=== PATIENT | female | born 1985 | race African-American/Black ===

== ENCOUNTER 2018-07-20 10:47 | Emergency (ER) | payer SELFPAY ==
--- NOTE | 2018-07-20 11:30 | ER Document Report ---
ED Medical Screen (RME) - General Chief Complaint: Flank Pain Stated Complaint: LEG PAIN Time Seen by Provider: 07/20/18 11:28 Notes: 32 years old female who is presents today with left lower quadrant pain radiating the groin. As well as to the leg. Since this morning. She had a bowel movement 2 days ago. Denies any dysuria frequency urgency. Denies any vaginal discharge. Denies any fever chills or other constitutional symptoms. She had a ultrasound done by health clinic last week Wednesday. It showed intrauterine productive concept. Too early to define anything else. Mild to moderate tenderness over the left lower quadrant noted. Left flank tenderness to. TRAVEL OUTSIDE OF THE [place] IN LAST 30 DAYS: No - Related Data Allergies/Adverse Reactions: No Known Allergies Allergy (Unverified 07/20/18 10:52) Past Medical History - Immunizations Hx Diphtheria, Pertussis, Tetanus Vaccination: Yes Physical Exam - Vital signs Vitals: Temp Pulse Resp BP Pulse Ox 98.8 F 98 16 125/84 99 07/20/18 10:56 07/20/18 10:56 07/20/18 10:56 07/20/18 10:56 07/20/18 10:56 Course - Vital Signs Vital signs: Temp Pulse Resp BP Pulse Ox 98.8 F 98 16 125/84 99 07/20/18 10:56 07/20/18 10:56 07/20/18 10:56 07/20/18 10:56 07/20/18 10:56
[2018-07-20 11:53] LABS: ABSOLUTE EOSINOPHILS # (AUTO) 0.2 10^3/uL (0.0-0.6); ABSOLUTE MONOCYTES (AUTO) 0.8 10^3/uL (0.1-1.4); HEMOGLOBIN 13.4 g/dL (12.0-15.5); TOTAL CELLS COUNTED % (AUTO) 100 %
[2018-07-20 11:57] LABS: APPEARANCE,URINE CLEAR; BILIRUBIN,URINE NEGATIVE (NEGATIVE); COLOR,URINE STRAW; GLUCOSE, URINE NEGATIVE (NEGATIVE); KETONES,URINE NEGATIVE (NEGATIVE); LEUKOCYTE ESTERASE,URINE NEGATIVE (NEGATIVE); NITRITE,URINE NEGATIVE (NEGATIVE); PROTEIN,URINE NEGATIVE (NEGATIVE); URINE SPECIFIC GRAVITY 1.005; UROBILINOGEN,URINE NEGATIVE mg/dL (<2.0)
[2018-07-20 12:09] LABS: ABSOLUTE LYMPHOCYTES (AUTO) 3.1 10^3/uL (0.5-4.7)
[2018-07-20 12:13] LABS: ABSOLUTE BASOPHILS # (AUTO) 0.1 10^3/uL (0.0-0.2); BASOPHILS % (AUTO) 0.6 % (0-2); EOSINOPHILS % (AUTO) 2.4 % (0-6); HEMATOCRIT 39.4 % (36.0-47.0); LYMPHOCYTES % (AUTO) 30.4 % (13-45); MEAN CORPUSCULAR HEMOGLOBIN 28.9 pg (27.0-33.4); MEAN CORPUSCULAR HGB CONC 34.1 g/dL (32.0-36.0); MEAN CORPUSCULAR VOLUME 85 fl (80-97); MONOCYTES % (AUTO) 7.7 % (3-13); PLATELET COUNT 191 10^3/uL (150-450); RED BLOOD COUNT 4.65 10^6/uL (3.72-5.28); RED CELL DISTRIBUTION WIDTH 14.3 % (11.5-14.0); SEGMENTED NEUTROPHILS % (AUTO) 58.9 % (42-78); WHITE BLOOD COUNT 10.2 10^3/uL (4.0-10.5)
[2018-07-20 12:37] LABS: ALANINE AMINOTRANSFERASE 16 U/L (9-52); ALBUMIN 4.6 g/dL (3.5-5.0); ALKALINE PHOSPHATASE 40 U/L (38-126); ANION GAP 9 (5-19); ASPARTATE AMINO TRANSFERASE 19 U/L (14-36); BILIRUBIN,DIRECT 0.1 mg/dL (0.0-0.4); BILIRUBIN,TOTAL 0.4 mg/dL (0.2-1.3); BLOOD UREA NITROGEN 8 mg/dL (7-20); CALCIUM 9.9 mg/dL (8.4-10.2); CARBON DIOXIDE 26 mmol/L (22-30); CHLORIDE 102 mmol/L (98-107); GLUCOSE 101 mg/dL (75-110); SODIUM 137.4 mmol/L (137-145); TOTAL PROTEIN 7.3 g/dL (6.3-8.2)
--- NOTE | 2018-07-20 14:44 | ER Document Report ---
ED General - General Chief Complaint: Flank Pain Stated Complaint: LEG PAIN Time Seen by Provider: 07/20/18 11:28 Mode of Arrival: Ambulatory Information source: Patient Notes: 32-year-old female 3 para 1, history of miscarriage. Presents with left lower abdominal pain in the setting of early . Patient denies any vaginal bleeding. TRAVEL OUTSIDE OF THE [place] IN LAST 30 DAYS: No - HPI Onset: Just prior to arrival Onset/Duration: Gradual Quality of pain: Cramping, Dull Severity: Mild Pain Level: 1 Associated symptoms: denies: Chest pain, Nausea, Vomiting, Shortness of breath Exacerbated by: Denies Relieved by: Denies Similar symptoms previously: No Recently seen / treated by doctor: No - Related Data Allergies/Adverse Reactions: No Known Allergies Allergy (Unverified 07/20/18 10:52) Past Medical History - General Information source: Patient - Social History Smoking Status: Current Every Day Smoker Cigarette use (# per day): Yes - Half pack per day Chew tobacco use (# tins/day): No Frequency of alcohol use: None Drug Abuse: None Lives with: Family Family History: Hypertension Patient has suicidal ideation: No Patient has homicidal ideation: No - Medical History Medical History: Negative Renal/ Medical History: Denies: Hx Peritoneal Dialysis Surgical Hx: Negative - Immunizations Hx Diphtheria, Pertussis, Tetanus Vaccination: Yes Review of Systems - Review of Systems Constitutional: denies: Chills, Fever EENT: No symptoms reported Cardiovascular: No symptoms reported Respiratory: No symptoms reported Gastrointestinal: See HPI Genitourinary: No symptoms reported. denies: Dysuria, Flank pain Female Genitourinary: No symptoms reported Musculoskeletal: No symptoms reported Skin: No symptoms reported Hematologic/Lymphatic: No symptoms reported Neurological/Psychological: No symptoms reported Physical Exam - Vital signs Vitals: Temp Pulse Resp BP Pulse Ox 98.8 F 98 16 125/84 99 07/20/18 10:56 07/20/18 10:56 07/20/18 10:56 07/20/18 10:56 07/20/18 10:56 Notes: Physical exam: GENERAL: Patient is alert and oriented x3, no acute distress HEAD: Atraumatic, normocephalic. EYES: Pupils equal round and reactive to light, extraocular movements intact, sclera anicteric, conjunctiva are normal. ENT: TMs normal, nares patent, oropharynx clear without exudates. Moist mucous membranes. NECK: Normal range of motion, supple without obvious mass or JVD. LUNGS: Breath sounds clear to auscultation bilaterally and equal. No wheezes rales or rhonchi. HEART: Regular rate and rhythm without murmurs, rubs or gallops. ABDOMEN: Soft, normoactive bowel sounds. No tenderness to palpation. No guarding, no rebound. No masses appreciated. EXTREMITIES: Normal range of motion, no pitting or edema. No clubbing or cyanosis. NEUROLOGICAL: Cranial nerves II through XII grossly intact. Normal speech, moving all extremities. PSYCH: Normal mood, normal affect. SKIN: Warm, Dry, normal turgor, no rashes or lesions noted. Bedside ultrasound: No hydronephrosis Course - Vital Signs Vital signs: Temp Pulse Resp BP Pulse Ox 98.5 F 88 14 112/75 100 07/20/18 14:49 07/20/18 14:49 07/20/18 14:49 07/20/18 14:49 07/20/18 14:49 - Laboratory Result Diagrams: 07/20/18 11:40 07/20/18 11:40 Laboratory results interpreted by me: 07/20/18 07/20/18 11:40 11:40 RDW 14.3 H Beta HCG, Quant 95147.00 H - Diagnostic Test Radiology reviewed: Image reviewed, Reports reviewed - Normal ultrasound shows a viable intrauterine at 6 weeks, 1 day gestation Discharge - Discharge Clinical Impression: Early Condition: Stable Disposition: HOME, SELF-CARE Additional Instructions: The preliminary results of the ultrasound show that the is in the right spot in the there is a heart beat. These are good signs thus far. The is approximately 6 weeks and a few days gestation. The formal report as we discussed is not back yet. Return to the emergency room for worsening pain, any vaginal bleeding or any concerns that your discomfort is getting worse. Follow-up at the health department as planned. Referrals: MARIELA GALICIA MD [Primary Care Provider] - Follow up as needed
--- NOTE | 2018-07-20 14:45 | RADIOLOGY REPORT (SQ) ---
EXAM DESCRIPTION: U/S [id number] TRNABD 1GES W/ODOP COMPLETED DATE/TIME: 07/20/2018 2:28 pm REASON FOR STUDY: left flank pain, COMPARISON: None. TECHNIQUE: Transabdominal static and realtime grayscale images acquired of the pelvis. Additional se lected spectral and color Doppler images recorded. All images stored on PACs. bHCG: Not available. CLINICAL DATES: LMP 05/23/2018. 8 weeks 2 days. LIMITATIONS: None. FINDINGS: FETUS: Single Living intrauterine . ULTRASOUND EGA: 6 weeks 1 day ULTRASOUND BETTY: In 03/14/2019 EFW: Not applicable less than 20 weeks. CRL: 4 mm. FHR: 123 beats per minute. SURVEY: Too early to assess. AMNIOTIC FLUID: Adequate amount. PLACENTA: Not yet developed due to early gestation. SUBCHORIONIC BLEED: No SIZE OF BLEED: Not applicable. UTERUS: No masses. No anomalies. 12.3 x 6.9 x 6.3 cm. CERVICAL LENGTH: 2.3 cm. Closed. RIGHT ADNEXA: Normal ovary with normal vascular flow. 2.4 x 2.7 x 1.8 cm. No adnexal free fluid. No adnexal masses. LEFT ADNEXA: Normal ovary with normal vascular flow. 2.6 x 2.6 x 1.6 cm. No adnexal free fluid. No adnexal masses. FREE FLUID: None. OTHER: No other significant finding. IMPRESSION: LIVING INTRAUTERINE . EGA 6 weeks 1 day. Trimester of : First - 0 to 13 weeks. TECHNICAL DOCUMENTATION: JOB ID: [id number] [employer]- All Rights Reserved rev Reading location - IP/workstation name: [email or web address]
[2018-07-20 14:52] VITALS: BP 112/75
== END 2018-07-20 14:49 | disposition home or self-care (01) ==
LOC: ER 10:47
DX: O26.891 Other specified pregnancy related conditions, first trimester (principal); O99.331 Smoking (tobacco) complicating pregnancy, first trimester; R10.32 Left lower quadrant pain; Z3A.01 Less than 8 weeks gestation of pregnancy
CPT/HCPCS: 36415; 76801; 80053; 81001; 84702; 85025; 99284

== ENCOUNTER 2018-08-20 02:34 | Emergency (ER) | payer SELFPAY ==
--- NOTE | 2018-08-20 02:51 | ER Document Report ---
ED GI/ - General Chief Complaint: Vaginal Bleeding Stated Complaint: VAGINAL BLEEDING Time Seen by Provider: 08/20/18 02:38 Mode of Arrival: Ambulatory Information source: Patient Notes: Patient presents stating that she is attending 1/2 weeks . Patient states that she started to have pelvic cramping with vaginal bleeding that started around 1 AM. Patient states that bleeding has been light. Patient denies any concerns about any sexually transmitted infection. Patient does report occasional pressure with voiding but denies any dysuria. TRAVEL OUTSIDE OF THE [place] IN LAST 30 DAYS: No - HPI Patient complains to provider of: Pelvic pain, , Vaginal bleeding. 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 period history: Sexual history: Active Associated symptoms: denies: Dysuria, Fever, Nausea, Urinary hesitancy, Urinary frequency, Vomiting Exacerbated by: Denies Relieved by: Denies Similar symptoms previously: No Recently seen / treated by doctor: No - Related Data Allergies/Adverse Reactions: No Known Allergies Allergy (Verified 08/20/18 02:53) Past Medical History - General Information source: Patient - Social History Smoking Status: Never Smoker Frequency of alcohol use: None Drug Abuse: None 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 denies: Fever, Recent illness EENT: No symptoms reported Cardiovascular: No symptoms reported. denies: Dizziness Respiratory: No symptoms reported. denies: Cough, Short of breath Gastrointestinal: Abdominal pain. denies: Diarrhea, Nausea, Vomiting Genitourinary: Other - Occasional pressure with voiding. denies: Burning Female Genitourinary: , Vaginal bleeding. denies: Vaginal discharge Musculoskeletal: No symptoms reported. denies: Back pain Skin: No symptoms reported Hematologic/Lymphatic: No symptoms reported Neurological/Psychological: No symptoms reported Physical Exam - Vital signs Vitals: Temp Pulse Resp BP Pulse Ox 98.8 F 89 16 113/77 99 08/20/18 02:34 08/20/18 02:34 08/20/18 02:34 08/20/18 02:34 08/20/18 02:34 - General General appearance: Appears well, Alert In distress: None - HEENT Head: Normocephalic, Atraumatic Eyes: Normal Conjunctiva: Normal Nasal: Normal Neck: Normal, Supple. No: Lymphadenopathy - Respiratory Respiratory status: No respiratory distress Chest status: Nontender Breath sounds: Normal. No: Rales, Rhonchi, Stridor, Wheezing Chest palpation: Normal - Cardiovascular Rhythm: Regular Heart sounds: S1 appreciated, S2 appreciated Murmur: No - Abdominal Inspection: Normal Distension: No distension Bowel sounds: Normal Tenderness: Tender - lower pelvic - Back Back: Normal, Nontender. No: CVA tenderness - Extremities General upper extremity: Normal inspection, Nontender, Normal strength General lower extremity: Normal inspection, Nontender, Normal strength - Neurological Neuro grossly intact: Yes Cognition: Normal Kristi Coma Scale Eye Opening: Spontaneous [place] Coma Scale Verbal: Oriented Kristi Coma Scale Motor: Obeys Commands [place] Coma Scale Total: 15 - Psychological Associated symptoms: Normal affect, Normal mood - Skin Skin Temperature: Warm Skin Moisture: Dry Skin Color: Normal Course - Re-evaluation Re-evalutation: 08/20/18 05:02 Patient hemodynamically stable with stable vital signs at this time. Patient denies needing any medication for her lower pelvic cramping at this time. Patient with what appears to be a subchorionic bleed noted on ultrasound. Patient does have a small amount of hematuria on a UA but suspect that this is a likely contaminant from the vaginal bleeding at this time. Good return precautions given to patient and patient encouraged to follow-up with an INSTRUCTIONAL TECHNOLOGY COACH provider to establish care at this time. - Vital Signs Vital signs: Temp Pulse Resp BP Pulse Ox 98.8 F 89 16 113/77 99 08/20/18 02:34 08/20/18 02:34 08/20/18 02:34 08/20/18 02:34 08/20/18 02:34 - Laboratory Result Diagrams: 08/20/18 02:50 Laboratory results interpreted by me: 08/20/18 08/20/18 08/20/18 02:50 02:50 03:15 WBC 11.1 H Beta HCG, Quant 30411.00 H Urine Blood MODERATE H Labs- Entire Visit 1108/20/18 08/20/18 02:50 02:50 02:50 WBC 11.1 H RBC 4.65 Hgb 13.4 Hct 40.1 MCV 86 MCH 28.9 MCHC 33.5 RDW 13.9 Plt Count 198 Seg Neutrophils % 67.4 Lymphocytes % 23.3 Monocytes % 7.0 Eosinophils % 1.9 Basophils % 0.4 Absolute Neutrophils 7.5 Absolute Lymphocytes 2.6 Absolute Monocytes 0.8 Absolute Eosinophils 0.2 Absolute Basophils 0.0 Beta HCG, Quant 13901.00 H Total Beta HCG POSITIVE Urine Color Urine Appearance Urine pH Ur Specific [place] Urine Protein Urine Glucose (UA) Urine Ketones Urine Blood Urine Nitrite Urine Bilirubin Urine Urobilinogen Ur Leukocyte Esterase Urine WBC (Auto) Urine RBC (Auto) Squamous Epi Cells Auto Urine Mucus (Auto) Urine Ascorbic Acid Blood Type AB POSITIVE Rhogam Indicated RHOGAM NOT INDICATED 08/20/18 03:15 WBC RBC Hgb Hct MCV MCH MCHC RDW Plt Count Seg Neutrophils % Lymphocytes % Monocytes % Eosinophils % Basophils % Absolute Neutrophils Absolute Lymphocytes Absolute Monocytes Absolute Eosinophils Absolute Basophils Beta HCG, Quant Total Beta HCG Urine Color YELLOW Urine Appearance SLIGHTLY-CLOUDY Urine pH 5.0 Ur Specific [place] 1.027 Urine Protein NEGATIVE Urine Glucose (UA) NEGATIVE Urine Ketones NEGATIVE Urine Blood MODERATE H Urine Nitrite NEGATIVE Urine Bilirubin NEGATIVE Urine Urobilinogen NEGATIVE Ur Leukocyte Esterase NEGATIVE Urine WBC (Auto) 2 Urine RBC (Auto) 2 Squamous Epi Cells Auto <1 Urine Mucus (Auto) MANY Urine Ascorbic Acid NEGATIVE Blood Type Rhogam Indicated - Diagnostic Test Radiology reviewed: Reports reviewed Discharge - Discharge Clinical Impression: Intrauterine Subchorionic bleed Qualifiers: Fetus number: single or unspecified fetus Trimester: first trimester Qualified Code(s): O41.8X10 - Other specified disorders of amniotic fluid and membranes, first trimester, not applicable or unspecified Condition: Stable Disposition: HOME, SELF-CARE Instructions: Vaginal Bleeding ([facility]) Additional Instructions: Return immediately for any new or worsening symptoms Followup with your primary care provider, call tomorrow to make a followup appointment Follow-up with an INSTRUCTIONAL TECHNOLOGY COACH for further evaluation, call Wednesday for an appointment. Pelvic rest until symptoms have resolved Forms: Return to Work Referrals: MARIELA GALICIA MD [EMERITUS] - [facility] - Follow up as needed [facility] [Provider Group] - 08/22/18
[2018-08-20 03:04] LABS: ABSOLUTE EOSINOPHILS # (AUTO) 0.2 10^3/uL (0.0-0.6); ABSOLUTE LYMPHOCYTES (AUTO) 2.6 10^3/uL (0.5-4.7); ABSOLUTE MONOCYTES (AUTO) 0.8 10^3/uL (0.1-1.4); ABSOLUTE NEUT (AUTO) 7.5 10^3/uL (1.7-8.2); BASOPHILS % (AUTO) 0.4 % (0-2); EOSINOPHILS % (AUTO) 1.9 % (0-6); HEMATOCRIT 40.1 % (36.0-47.0); HEMOGLOBIN 13.4 g/dL (12.0-15.5); LYMPHOCYTES % (AUTO) 23.3 % (13-45); MEAN CORPUSCULAR HEMOGLOBIN 28.9 pg (27.0-33.4); MEAN CORPUSCULAR HGB CONC 33.5 g/dL (32.0-36.0); MEAN CORPUSCULAR VOLUME 86 fl (80-97); PLATELET COUNT 198 10^3/uL (150-450); RED BLOOD COUNT 4.65 10^6/uL (3.72-5.28); RED CELL DISTRIBUTION WIDTH 13.9 % (11.5-14.0); SEGMENTED NEUTROPHILS % (AUTO) 67.4 % (42-78); TOTAL CELLS COUNTED % (AUTO) 100 %; WHITE BLOOD COUNT 11.1 10^3/uL (4.0-10.5)
--- NOTE | 2018-08-20 04:01 | RADIOLOGY REPORT (SQ) ---
EXAM DESCRIPTION: US LIMITED COMPLETED DATE/TME: 08/20/2018 02:46 CLINICAL HISTORY: 32 years, Female, vag bleeding, pelvic cramping COMPARISON: 07/20/2018 ultrasound TECHNIQUE: Transverse and longitudinal sonographic images were obtained in a first trimester patient. LIMITATIONS: None. FINDINGS: There is a single, live intrauterine gestation. Current ultrasound age is 10 weeks 5 days. heart tones obtained at 160 bpm. There is a 1.7 x 1.0 x 1.8 cm hypoechoic area adjacent to the gestational sac which could reflect small subchorionic hemorrhage. Continued obstetric follow-up recommended. IMPRESSION: Single, live intrauterine gestation with current ultrasound age 10 weeks 5 days. Possible small subchorionic hemorrhage. Close obstetric follow-up recommended 2010 [employer]- All Rights Reserved
[2018-08-20 04:02] LABS: APPEARANCE,URINE SLIGHTLY-CLOUDY; BILIRUBIN,URINE NEGATIVE (NEGATIVE); COLOR,URINE YELLOW; GLUCOSE, URINE NEGATIVE (NEGATIVE); KETONES,URINE NEGATIVE (NEGATIVE); LEUKOCYTE ESTERASE,URINE NEGATIVE (NEGATIVE); NITRITE,URINE NEGATIVE (NEGATIVE); PROTEIN,URINE NEGATIVE (NEGATIVE); URINE SPECIFIC GRAVITY 1.027; UROBILINOGEN,URINE NEGATIVE mg/dL (<2.0)
[2018-08-20 05:00] LABS: CHLAM PCR NOT DETECTED (NOT DETECT); GON PCR NOT DETECTED (NOT DETECT)
[2018-08-20 05:26] VITALS: BP 99/67
== END 2018-08-20 05:25 | disposition home or self-care (01) ==
LOC: ER 02:34
DX: O41.8X10 Other specified disorders of amniotic fluid and membranes, first trimester, not applicable or unspecified (principal); Z3A.10 10 weeks gestation of pregnancy
CPT/HCPCS: 36415; 76815; 81001; 84702; 85025; 86900; 86901; 87491; 87591; 99284

== ENCOUNTER 2018-10-16 16:56 | Emergency (ER) | payer MEDICAID ==
--- NOTE | 2018-10-16 17:16 | ER Document Report ---
ED Medical Screen (RME) - General Chief Complaint: Lower Abdominal Pain Stated Complaint: ABDOMINAL PAIN Time Seen by Provider: 10/16/18 17:13 Mode of Arrival: Ambulatory Information source: Patient TRAVEL OUTSIDE OF THE [place] IN LAST 30 DAYS: No - HPI Patient complains to provider of: ; pelvic pain Onset: This morning - pt is approx 19 weeks with onset of vaginal and lower abdominal pain starting earlier this am - Related Data Allergies/Adverse Reactions: No Known Allergies Allergy (Verified 08/20/18 02:53) Past Medical History Renal/ Medical History: Denies: Hx Peritoneal Dialysis - Immunizations Hx Diphtheria, Pertussis, Tetanus Vaccination: Yes Physical Exam - Vital signs Vitals: Temp Pulse Resp BP Pulse Ox 97.5 F 91 16 114/71 100 10/16/18 17:01 10/16/18 17:01 10/16/18 17:01 10/16/18 17:01 10/16/18 17:01 Course - Vital Signs Vital signs: Temp Pulse Resp BP Pulse Ox 97.5 F 91 16 114/71 100 10/16/18 17:01 10/16/18 17:01 10/16/18 17:01 10/16/18 17:01 10/16/18 17:01
[2018-10-16 17:54] LABS: HEMATOCRIT 37.4 % (36.0-47.0); HEMOGLOBIN 12.7 g/dL (12.0-15.5); MEAN CORPUSCULAR HEMOGLOBIN 29.6 pg (27.0-33.4); MEAN CORPUSCULAR VOLUME 87 fl (80-97); PLATELET COUNT 188 10^3/uL (150-450); RED BLOOD COUNT 4.29 10^6/uL (3.72-5.28); RED CELL DISTRIBUTION WIDTH 13.4 % (11.5-14.0); WHITE BLOOD COUNT 14.3 10^3/uL (4.0-10.5)
[2018-10-16 18:07] LABS: ALANINE AMINOTRANSFERASE 20 U/L (9-52); ALKALINE PHOSPHATASE 67 U/L (38-126); ANION GAP 7 (5-19); ASPARTATE AMINO TRANSFERASE 17 U/L (14-36); BILIRUBIN,DIRECT 0.1 mg/dL (0.0-0.4); BILIRUBIN,TOTAL 0.1 mg/dL (0.2-1.3); BLOOD UREA NITROGEN 7 mg/dL (7-20); CARBON DIOXIDE 25 mmol/L (22-30); CHLORIDE 104 mmol/L (98-107); GLUCOSE 92 mg/dL (75-110); POTASSIUM 3.7 mmol/L (3.6-5.0); SODIUM 136.1 mmol/L (137-145); TOTAL PROTEIN 6.5 g/dL (6.3-8.2)
[2018-10-16 18:24] LABS: APPEARANCE,URINE SLIGHTLY-CLOUDY; BILIRUBIN,URINE NEGATIVE (NEGATIVE); COLOR,URINE YELLOW; GLUCOSE, URINE NEGATIVE (NEGATIVE); KETONES,URINE TRACE mg/dL (NEGATIVE); LEUKOCYTE ESTERASE,URINE TRACE (NEGATIVE); NITRITE,URINE NEGATIVE (NEGATIVE); PROTEIN,URINE 30 mg/dL (NEGATIVE); UROBILINOGEN,URINE NEGATIVE mg/dL (<2.0)
--- NOTE | 2018-10-16 18:29 | RADIOLOGY REPORT (SQ) ---
EXAM DESCRIPTION: U/S OB 14+ TA/1 GEST W/DOPPLER COMPLETED DATE/TIME: 10/16/2018 6:17 pm REASON FOR STUDY: ; abd pain COMPARISON: 08/10/2018 TECHNIQUE: Static and Dynamic grayscale imaging performed of gravid uterus using transabdominal appr oach. Additional selected color Doppler and spectral images recorded. All stored on PACS. LIMITATIONS: None. FINDINGS: FETUSES SEEN:1 EGA: 18 weeks 6 days Calculated using BPD,FL,HC,AC documented on images. No discrepancy with clinica l dates. BETTY: 03/13/2019 EFW: 263+/- 39 grams PERCENTILE: Not calculated ANA CRISTINA: Adequate amount. PLACENTA: Anterior PRESENTATION: Vertex ANATOMY: HEART RATE: 147 beats per minute. FOUR CHAMBER HEART: Limited THREE VESSEL CORD: Yes. CORD INSERTION: Visualized. KIDNEYS AND BLADDER: Visualized. Appear normal. STOMACH: Visualized. Appears normal. SPINE: Normal as visualized. BRAIN AND LATERAL VENTRICLES: Visualized. Appear normal. OTHER: No other significant finding. MATERNAL ADNEXA: Left ovary appears normal measuring 2.6 x 2.0 x 3.3 cm. Right ovary is not visualiz ed. CERVICAL LENGTH: 4.2 Closed. OTHER: No other significant finding. IMPRESSION: LIVING INTRAUTERINE . ESTIMATED GESTATIONAL AGE 18 weeks 6 days Limited evaluation of four-chamber heart. Attention on follow-up exam. Trimester of : Second trimester - 13 weeks 1 day to 27 weeks 6 days. TECHNICAL DOCUMENTATION: JOB ID: [id number] [employer]- All Rights Reserved Reading location - IP/workstation name: [email or web address]
--- NOTE | 2018-10-16 18:49 | ER Document Report ---
ED General - General Chief Complaint: Lower Abdominal Pain Stated Complaint: ABDOMINAL PAIN Time Seen by Provider: 10/16/18 17:13 Mode of Arrival: Ambulatory Notes: Patient is a 32-year old female at 19 weeks by ultrasound who presents with 3-4 hours of lower abdominal cramping and pressure in her vagina. Symptoms are described as being moderate and constant in nature. 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 She states that symptoms seem to be abating since she has been lying in the bed here in the emergency department. Nothing worsens her symptoms. No history of similar symptoms in the past. She denies any change in vaginal discharge, vaginal bleeding or dysuria. Continues to feel movement. No vomiting, fever or constitutional symptoms. She has not seen her 21 DEALER regarding today's concerns. TRAVEL OUTSIDE OF THE [place] IN LAST 30 DAYS: No - Related Data Allergies/Adverse Reactions: No Known Allergies Allergy (Verified 08/20/18 02:53) Past Medical History - General Information source: Patient - Social History Smoking Status: Never Smoker Chew tobacco use (# tins/day): No Frequency of alcohol use: None Drug Abuse: None Lives with: Spouse/Significant other Family History: Hypertension Patient has suicidal ideation: No Patient has homicidal ideation: No Renal/ Medical History: Denies: Hx Peritoneal Dialysis - Immunizations Hx Diphtheria, Pertussis, Tetanus Vaccination: Yes Review of Systems - Review of Systems Notes: Constitutional: Negative for fever. HENT: Negative for sore throat. Eyes: Negative for visual changes. Cardiovascular: Negative for chest pain. Respiratory: Negative for shortness of breath. Gastrointestinal: Positive for lower abdominal pain Genitourinary: Negative for dysuria. Musculoskeletal: Negative for back pain. Skin: Negative for rash. Neurological: Negative for headaches, weakness or numbness. 10 point ROS negative except as marked above and in HPI. Physical Exam - Vital signs Vitals: Temp Pulse Resp BP Pulse Ox 97.5 F 91 16 114/71 100 10/16/18 17:01 10/16/18 17:01 10/16/18 17:01 10/16/18 17:01 10/16/18 17:01 Interpretation: Normal Notes: PHYSICAL EXAMINATION: GENERAL: Well-appearing, well-nourished and in no acute distress. HEAD: Atraumatic, normocephalic. EYES: Pupils equal round and reactive to light, extraocular movements intact, sclera anicteric, conjunctiva are normal. ENT: nares patent, oropharynx clear without exudates. Moist mucous membranes. NECK: Normal range of motion, supple without lymphadenopathy LUNGS: Breath sounds clear to auscultation bilaterally and equal. No wheezes rales or rhonchi. HEART: Regular rate and rhythm without murmurs ABDOMEN: Soft, gravid uterus, nontender, normoactive bowel sounds. No guarding, no rebound. No masses appreciated. EXTREMITIES: Normal range of motion, no pitting or edema. No cyanosis. NEUROLOGICAL: No focal neurological deficits. Moves all extremities spontaneously and on command. PSYCH: Normal mood, normal affect. SKIN: Warm, Dry, normal turgor, no rashes or lesions noted. Course - Re-evaluation Re-evalutation: 10/16/18 18:39 Patient is currently and presenting with lower abdominal pain. No vaginal bleeding or discharge. Formal ultrasound shows a viable intrauterine , appropriate cardiac activity and active movement. Patient denies any dysuria and urinalysis is not consistent with an acute urinary tract infection. The patient does not have any focal right lower quadrant tenderness, rebound or guarding to suggest acute appendicitis. No right upper quadrant tenderness to suggest cholestasis of or an acute cholecystitis. Patient has tolerated oral intake here in the emergency department without difficulty. Vitals are within normal limits. At this time will discharge with return precautions and follow-up recommendations. Verbal discharge instructions given a the bedside and opportunity for questions given. Medication warnings reviewed. Patient is in agreement with this plan and has verbalized understanding of return precautions and the need for primary care follow-up in the next 24-72 hours. - Vital Signs Vital signs: Temp Pulse Resp BP Pulse Ox 97.5 F 91 16 114/71 100 10/16/18 17:01 10/16/18 17:01 10/16/18 17:01 10/16/18 17:01 10/16/18 17:01 - Laboratory Result Diagrams: 10/16/18 17:43 10/16/18 17:43 Laboratory results interpreted by me: 10/16/18 10/16/18 17:43 17:43 WBC 14.3 H Urine Protein 30 H Urine Ketones TRACE H Ur Leukocyte Esterase TRACE H - Diagnostic Test Radiology reviewed: Reports reviewed Discharge - Discharge Clinical Impression: Abdominal pain complicating Condition: Good Disposition: HOME, SELF-CARE Additional Instructions: You were seen for abdominal pain during . Your ultrasound and labs are normal today. The exact cause your pain is uncertain but is likely related to your developing baby. Please follow-up with your 21 DEALER in the next 24-48 hours. Return to the emergency department immediately if you have worsening of your pain, have persistent vomiting, develop a fever of greater than 100.4F, begin to have vaginal bleeding, or any other symptoms that are worrisome to you.
[2018-10-16 18:52] VITALS: BP 111/73
== END 2018-10-16 18:52 | disposition home or self-care (01) ==
LOC: ER 16:56
DX: O26.892 Other specified pregnancy related conditions, second trimester (principal); R10.30 Lower abdominal pain, unspecified; R39.89 Other symptoms and signs involving the genitourinary system; Z3A.19 19 weeks gestation of pregnancy
CPT/HCPCS: 36415; 76805; 80053; 81001; 84702; 85027; 93976; 99284

== ENCOUNTER → 2019-02-03 | Outpatient (CLI) | payer MEDICAID ==
--- NOTE | 2019-02-03 16:24 | Non Stress Test Report ---
Non Stress Test Datetime Report Generated by CPN: 02/03/2019 16:24 DEMOGRAPHIC Test Number: 1 INDICATION Indication for Study: Ordered by Provider Indication for Study (NST) Other: repeat from the office MONITORING Monitor Explained: Monitor Explained; Test Explained; Patient Verbalized Understanding Time on Monitor: 02/03/2019 15:25 Time off Monitor: 02/03/2019 16:14 NST Duration: 49 NST INTERVENTIONS NST Interventions: PO Hydration; Reposition Patient Physician Notified NST: J Godoy CNM BABY A: [id number] BABY A Movement : Present Movement : Present Contraction Frequency : 3-4 FHR Baseline : 125 Accelerations : 15X15 Decelerations : None Variability : Moderate 6-25bpm NST Review: Meets Criteria for Reactive NST NST Review and Verified By : Tin VELOZ Results: Reactive NST COMMENTS NST Comments: SVE Closed/thick/high and soft NST REPORT Report Trigger: Send Report
== END ==
LOC: LC 15:17
PROVIDERS: ATTEND Student in an Organized Health Care Education/Training Program
PROC: 4A1HXCZ Monitoring of Products of Conception, Cardiac Rate, External Approach (ICD-10-PCS; principal; 2019-02-03)
DX: O26.893 Other specified pregnancy related conditions, third trimester (principal); Z3A.35 35 weeks gestation of pregnancy
CPT/HCPCS: 59025

== ENCOUNTER 2019-02-21 11:34 | Outpatient (CLI) | payer MEDICAID ==
--- NOTE | 2019-02-21 12:49 | Non Stress Test Report ---
Non Stress Test Datetime Report Generated by CPN: 02/21/2019 12:48 DEMOGRAPHIC Test Number: 3 EGA NST: 39.1 EGA NST: 36.4 INDICATION Indication for Study: Ordered by Provider MONITORING Monitor Explained: Monitor Explained; Test Explained; Patient Verbalized Understanding Time on Monitor: 02/21/2019 11:56 Time off Monitor: 02/21/2019 12:38 NST Duration: 42 NST INTERVENTIONS NST Interventions: PO Hydration; Reposition Patient Physician Notified NST: J. Godoy CNM BABY A: [id number] BABY A Movement : Present Contraction Frequency : Irregular FHR Baseline : 145 Accelerations : 15X15 Decelerations : None Variability : Moderate 6-25bpm NST Review: Meets Criteria for Reactive NST NST Review and Verified By : Deepali Hernandez RN NST Results: Reactive NST REPORT Report Trigger: Send Report
== END 2019-02-21 12:43 | disposition home or self-care (01) ==
LOC: LC 11:34
PROVIDERS: ATTEND Obstetrics & Gynecology
PROC: 4A1HXCZ Monitoring of Products of Conception, Cardiac Rate, External Approach (ICD-10-PCS; principal; 2019-02-21)
DX: O47.1 False labor at or after 37 completed weeks of gestation (principal); Z3A.39 39 weeks gestation of pregnancy
CPT/HCPCS: 59025

== ENCOUNTER 2019-03-14 12:07 | Outpatient (CLI) | payer MEDICAID ==
[2019-03-14 12:37] LABS: APPEARANCE,URINE SLIGHTLY-CLOUDY; BILIRUBIN,URINE NEGATIVE (NEGATIVE); COLOR,URINE YELLOW; GLUCOSE, URINE NEGATIVE (NEGATIVE); KETONES,URINE TRACE mg/dL (NEGATIVE); LEUKOCYTE ESTERASE,URINE TRACE (NEGATIVE); NITRITE,URINE NEGATIVE (NEGATIVE); PROTEIN,URINE 30 mg/dL (NEGATIVE); UROBILINOGEN,URINE NEGATIVE mg/dL (<2.0)
[2019-03-14 13:12] LABS: URINE AMPHETAMINES SCREEN NEGATIVE; URINE BARBITURATES SCREEN NEGATIVE; URINE BENZODIAZEPINES SCREEN NEGATIVE; URINE COCAINE SCREEN NEGATIVE; URINE MARIJUANA (THC) SCREEN NEGATIVE; URINE METHADONE SCREEN NEGATIVE; URINE PHENCYCLIDINE SCREEN NEGATIVE
--- NOTE | 2019-03-15 05:30 | Non Stress Test Report ---
Non Stress Test Datetime Report Generated by CPN: 03/15/2019 05:29 DEMOGRAPHIC Test Number: 4 EGA NST: 40.2 INDICATION Indication for Study: Ordered by Provider VITAL SIGNS Temperature - NST: 97.7 RESP - NST: 16 MONITORING Monitor Explained: Monitor Explained; Test Explained; Patient Verbalized Understanding Time on Monitor: 03/14/2019 12:30 Time off Monitor: 03/14/2019 13:25 NST Duration: 55 NST INTERVENTIONS NST Interventions: PO Hydration Physician Notified NST: K.Pena, CNM BABY A: [id number] BABY A Movement : Present Contraction Frequency : 2-6 FHR Baseline : 125 Accelerations : 15X15 Decelerations : None Variability : Moderate 6-25bpm NST Review: Meets Criteria for Reactive NST NST Review and Verified By : VAISHALI Saenz NST Results: Reactive NST REPORT Report Trigger: Send Report
== END 2019-03-14 14:44 | disposition home or self-care (01) ==
LOC: LC 12:07
PROVIDERS: ATTEND Student in an Organized Health Care Education/Training Program
PROC: 4A1HXCZ Monitoring of Products of Conception, Cardiac Rate, External Approach (ICD-10-PCS; principal; 2019-03-14)
DX: O47.1 False labor at or after 37 completed weeks of gestation (principal); O48.0 Post-term pregnancy; Z3A.40 40 weeks gestation of pregnancy
CPT/HCPCS: 59025; 80307; 81005

== ENCOUNTER 2019-03-15 05:31 | Inpatient (IN) | payer MEDICAID ==
[2019-03-15] MEDS ORDERED: LIDOCAINE 1% INJ-PF (10 MG/ML) 30 ML SDV ONE (05:44)
[2019-03-15] MEDS ORDERED: MISOPROSTOL 0.2 MG TABLET ONE (05:44)
[2019-03-15] MEDS ORDERED: OXYTOCIN 10 UNIT/ML VIAL ONE (05:44)
[2019-03-15] MEDS ORDERED: OXYTOCIN/NORMAL SALINE 20 UNIT/1,000 ML RTUINJ ONE (05:45)
[2019-03-15] MEDS ORDERED: RINGERS SOLUTION,LACTATED 1,000 ML IV PRN (05:45)
[2019-03-15] MEDS ORDERED: PENICILLIN G-K 5 MILLION UNIT VIAL ONE ×2 (05:45→09:50)
[2019-03-15] MEDS ORDERED: PENICILLIN G POTASSIUM 5,000,000 UNIT in DEXTROSE 5%-WATER 100 ML IV ONE (05:45)
[2019-03-15] MEDS ORDERED: PHENYLEPHRINE HCL INJ/PF 10 MG/1 ML SDV ONE (06:10)
[2019-03-15] MEDS ORDERED: EPHEDRINE SULFATE INJ 50 MG/1 ML AMPULE ONE (06:11)
[2019-03-15] MEDS ORDERED: FENTANYL/BUPIVACAINE/NS/PF 300 MCG/150 ML RTUINJ EPI ONE (06:11)
[2019-03-15] MEDS ORDERED: FENTANYL CITRATE INJ/PF 100 MCG/2 ML AMPUL ONE (06:11)
[2019-03-15] MEDS ORDERED: BUPIVACAINE HCL 0.25 % INJ/PF (2.5 MG/1 ML) 30 ML VIAL ONE (06:11)
[2019-03-15 06:26] LABS: ABSOLUTE EOSINOPHILS # (AUTO) 0.2 10^3/uL (0.0-0.6); ABSOLUTE LYMPHOCYTES (AUTO) 2.8 10^3/uL (0.5-4.7); ABSOLUTE MONOCYTES (AUTO) 1.1 10^3/uL (0.1-1.4); BASOPHILS % (AUTO) 0.3 % (0-2); EOSINOPHILS % (AUTO) 1.1 % (0-6); HEMOGLOBIN 10.9 g/dL (12.0-15.5); LYMPHOCYTES % (AUTO) 19.8 % (13-45); MEAN CORPUSCULAR HEMOGLOBIN 26.5 pg (27.0-33.4); MEAN CORPUSCULAR HGB CONC 33.1 g/dL (32.0-36.0); MEAN CORPUSCULAR VOLUME 80 fl (80-97); MONOCYTES % (AUTO) 7.8 % (3-13); PLATELET COUNT 146 10^3/uL (150-450); RED BLOOD COUNT 4.11 10^6/uL (3.72-5.28); RED CELL DISTRIBUTION WIDTH 14.8 % (11.5-14.0); TOTAL CELLS COUNTED % (AUTO) 100 %; WHITE BLOOD COUNT 14.1 10^3/uL (4.0-10.5)
--- NOTE | 2019-03-15 07:17 | Admission Physical ---
Datetime Report Generated by CPN: 03/15/2019 07:16 CURRENT ADMISSION Chief Complaint: Uterine Contractions; Suspected Ruptured Membranes Indication for Induction: Not Applicable Admit Impression : Term, Intrauterine ; Active Labor; Ruptured Membranes Admit Plan: Admit to Unit; Initiate Labor Protocol ALLERGIES Medication Allergies: No Medication Allergies: No Known Allergies (02/21/2019) Latex: No Latex Allergies OBSTETRICAL HISTORY EDC: 03/12/2019 00:00 : 3 Para: 1 Term: 1 : 0 SAB: 1 IAB: 0 Ectopic: 0 Livin Cesareans: 0 VBACs: 0 Multiple Births: 0 Gestational Diabetes: No Rh Sensitization: No Incompetent Cervix: No TERRANCE: No Infertility: No ART Treatment: No Uterine Anomaly: No IUGR: No Hx Previous C/S: No Macrosomia: No Hx Loss/Stillborn: No PIH: No Hx : No Placenta Previa/Abruption: No Depression/PP Depression: No PTL/PROM: No Post Hemorrhage: No Obstetrical History Comments: G1- G2- SEE RECORDS Alcohol: No Marijuana : No Cocaine: No Other Illicit Drugs: No Cigarettes: Current Everyday Smoker. 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: No Heart Disease: No Hosp/Surgery: No Autoimmune Disorder: No Anesthetic Complications: No Kidney Disease: No Abnormal Pap Smear: No Neuro/Epilepsy: No Psychiatric Disorders: No Other Medical Diseases: No Hepatitis/Liver Disease: No Significant Family History: No Varicosities/Phlebitis: No Trauma/Violence : No Thyroid Dysfunction: No INFECTIOUS HISTORY Gonorrhea: No Genital Herpes: No Chlamydia: No Tuberculosis: No Syphilis: No Hepatitis: No HIV/AIDS Exposure: No Rash or Viral Illness: No HPV: Yes PHYSICAL EXAM General: Normal HEENT: Normal Neurologic: Normal Thyroid: Deferred Heart: Normal Lungs: Normal Breast: Deferred Back: Normal Abdomen: Normal Genitourinary Exam: Normal Extremities: Normal DTRs: Normal Pelvic Type: Adequate Vital Signs: Reviewed VAGINAL EXAM Dilatation: 5 Effacement: 75 Station: -1 Contraction Comments: q 2-3 MEMBRANES Membranes: Ruptured Amniotic Fluid Color: Clear FETUS A EGA: 40.3 Monitoring: External US FHR- Baseline: 135 Variability: Moderate 6-25bpm Accelerations: 15X15 Decelerations: None Presentation: Vertex Admit Comment: 33yo at 40+3ega presents for suspected SROM at approx 0200 with clear fluid. Pt has been ctx since yesterday. BETTY by US not c/w LMP - BETTY 03/21/2019. late to care at 18wks. 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 GBS pos - PCN for GBS positive. demand planner placed. Pt desires epidural. Anticipate . PLANS FOR LABOR AND DELIVERY Labor and Delivery: None Pain Management: Epidural Feeding Preference: Breast Benefit of Breast Feed Discussed: Yes Circumcision: N/A INFORMED CONSENT Informed Consent Obtained: Vaginal Delivery; Risks, Benefits and Alternatives Discussed Signature: with User ID: [email or web address]
[2019-03-15 07:59] LABS: APPEARANCE,URINE SLIGHTLY-CLOUDY; BILIRUBIN,URINE NEGATIVE (NEGATIVE); COLOR,URINE YELLOW; GLUCOSE, URINE NEGATIVE (NEGATIVE); KETONES,URINE 20 mg/dL (NEGATIVE); LEUKOCYTE ESTERASE,URINE NEGATIVE (NEGATIVE); NITRITE,URINE NEGATIVE (NEGATIVE); PROTEIN,URINE 30 mg/dL (NEGATIVE); URINE SPECIFIC GRAVITY 1.036; UROBILINOGEN,URINE NEGATIVE mg/dL (<2.0)
[2019-03-15 08:24] LABS: URINE AMPHETAMINES SCREEN NEGATIVE; URINE BARBITURATES SCREEN NEGATIVE; URINE COCAINE SCREEN NEGATIVE; URINE MARIJUANA (THC) SCREEN NEGATIVE; URINE METHADONE SCREEN NEGATIVE
[2019-03-15 08:29] LABS: URINE BENZODIAZEPINES SCREEN NEGATIVE
[2019-03-15 08:33] LABS: URINE PHENCYCLIDINE SCREEN NEGATIVE
[2019-03-15] MEDS: PENICILLIN G POTASSIUM 2,500,000 UNIT in DEXTROSE 5%-WATER 50 ML IV SCH ×2 (09:58→15:29)
[2019-03-15] MEDS ORDERED: DIPHENHYDRAMINE HCL 25 MG CAPSULE PO PRN (13:14)
[2019-03-15] MEDS ORDERED: DIPH/PERTUSS(ACELL)/TETANUS VAC/PF 0.5 ML SYR (>=10YO) IM PRN (13:14)
[2019-03-15] MEDS ORDERED: ZOLPIDEM TARTRATE 5 MG TABLET PO PRN (13:14)
[2019-03-15] MEDS ORDERED: PROMETHAZINE HCL 25 MG TABLET PO PRN (13:14)
[2019-03-15] MEDS ORDERED: MAGNESIUM HYDROXIDE SUSP 30 ML UDCUP PO PRN (13:14)
[2019-03-15] MEDS ORDERED: PROMETHAZINE HCL INJ 25 MG/1 ML VIAL IV PRN (13:14)
[2019-03-15] MEDS ORDERED: DIBUCAINE 1% OINTMENT 56 GM TP PRN (13:14)
[2019-03-15] MEDS ORDERED: PROMETHAZINE HCL 25 MG SUPP.RECT PR PRN (13:14)
[2019-03-15] MEDS ORDERED: MEASLES,MUMPS&RUBELLA VACC/PF 0.5 ML VIAL SUBCUT PRN (13:14)
[2019-03-15] MEDS ORDERED: OXYTOCIN/NORMAL SALINE 20 UNIT/1,000 ML RTUINJ IV PRN (13:14)
[2019-03-15] MEDS ORDERED: PSEUDOEPHEDRINE HCL 30 MG TABLET PO PRN (13:14)
[2019-03-15] MEDS ORDERED: GLYCERIN/WITCH HAZEL LEAF 1 EACH MED..WIPE TP PRN (13:14)
[2019-03-15] MEDS ORDERED: BENZOCAINE/MENTHOL AEROSOL SPRAY 56 ML TOP PRN (13:14)
[2019-03-15] MEDS ORDERED: NA PHOS,M-B/NA PHOS,DI-BA (ADULT) 133 ML ENEMA PR PRN (13:14)
[2019-03-15] MEDS ORDERED: ACETAMINOPHEN WITH CODEINE #3 TABLET PO PRN ×2 (13:14)
[2019-03-15] MEDS ORDERED: ACETAMINOPHEN 650 MG SUPP.RECT PR PRN (13:14)
[2019-03-15] MEDS ORDERED: IBUPROFEN 800 MG TABLET ONE (13:34)
[2019-03-15] MEDS: IBUPROFEN 800 MG TABLET PO SCH ×2 (15:30→22:58)
[2019-03-15] MEDS: DOCUSATE SODIUM 100 MG CAPSULE PO SCH (18:23)
[2019-03-15] MEDS: FERROUS SULFATE 325 MG TABLET PO SCH (18:23)
[2019-03-15] MEDS: FAMOTIDINE 20 MG TABLET PO SCH (22:58)
[2019-03-16] MEDS: FAMOTIDINE 20 MG TABLET PO SCH ×3 (02:28→09:26)
[2019-03-16] MEDS: IBUPROFEN 800 MG TABLET PO SCH ×3 (05:20→21:54)
[2019-03-16 07:02] LABS: HEMATOCRIT 31.5 % (36.0-47.0); HEMOGLOBIN 10.3 g/dL (12.0-15.5); MEAN CORPUSCULAR HEMOGLOBIN 26.3 pg (27.0-33.4); MEAN CORPUSCULAR HGB CONC 32.7 g/dL (32.0-36.0); MEAN CORPUSCULAR VOLUME 81 fl (80-97); PLATELET COUNT 142 10^3/uL (150-450); RED BLOOD COUNT 3.91 10^6/uL (3.72-5.28); RED CELL DISTRIBUTION WIDTH 14.7 % (11.5-14.0); WHITE BLOOD COUNT 16.5 10^3/uL (4.0-10.5)
[2019-03-16] MEDS: DOCUSATE SODIUM 100 MG CAPSULE PO SCH ×2 (09:20→17:27)
[2019-03-16] MEDS: PRENATAL VITAMIN W DHA CAPSULE PO SCH (09:20)
[2019-03-16] MEDS: FERROUS SULFATE 325 MG TABLET PO SCH ×2 (09:20→17:27)
[2019-03-16] MEDS: SENNOSIDES/DOCUSATE 8.6-50 MG 1 EACH TABLET PO SCH (09:20)
--- NOTE | 2019-03-16 10:32 | PDOC PROGRESS REPORT ---
Subjective-OB Progress Note for:: 03/16/19 Subjective: On telephone, frustrated she can't get any rest in hospital, always someone calling or in room, bottle feeding, voiding Physical Exam (OB) Vital Signs: Temp Pulse Resp BP Pulse Ox 97.9 F 78 18 92/50 L 99 03/16/19 07:51 03/16/19 07:51 03/16/19 07:51 03/16/19 07:51 03/16/19 07:51 Intake & Output 03/15/19 03/16/19 03/17/19 06:59 06:59 06:59 Intake Total 1000 Balance 1000 Weight 72.7 kg - Lochia Lochia Amount: Small 10-25 ml Lochia Color: Rubra/Red - Abdomen Description: Soft, Round Hernia Present: No Fundal Description: Firm, Midline Fundal Height: u/u - u/2 Objective-Diagnostic Laboratory: 03/16/19 06:45 03/16/19 06:45 WBC 16.5 H RBC 3.91 Hgb 10.3 L Hct 31.5 L MCV 81 MCH 26.3 L MCHC 32.7 RDW 14.7 H Plt Count 142 L Assessment and Plan(PN) - Assessment and Plan (1) Delivery normal Is this a current diagnosis for this admission?: Yes (2) Substance abuse affecting , antepartum Is this a current diagnosis for this admission?: Yes (3) Limited care Qualifiers: Trimester: unspecified trimester Qualified Code(s): O09.30 - Supervision of with insufficient care, unspecified trimester Is this a current diagnosis for this admission?: Yes (4) Carrier or suspected carrier of group B Streptococcus Is this a current diagnosis for this admission?: Yes - Time Spent with Patient Time with patient: Less than 15 minutes Medications reviewed and adjusted accordingly: Yes - Disposition Anticipated Discharge: Home Within: within 24 hours
[2019-03-17] MEDS: FAMOTIDINE 20 MG TABLET PO SCH ×2 (05:32→11:27)
[2019-03-17] MEDS: IBUPROFEN 800 MG TABLET PO SCH ×2 (06:04→13:43)
[2019-03-17] MEDS ORDERED: DIPHENHYDRAMINE HCL 50 MG/ML VIAL IV ONE ×2 (09:36→09:49)
[2019-03-17 09:37] VITALS: BP 117/70
[2019-03-17] MEDS ORDERED: ALBUTEROL SULFATE 0.083% NEB 2.5 MG/3 ML AMPUL NEB ONE (09:37)
[2019-03-17] MEDS: PRENATAL VITAMIN W DHA CAPSULE PO SCH (11:26)
[2019-03-17] MEDS: DOCUSATE SODIUM 100 MG CAPSULE PO SCH ×2 (11:26→17:32)
[2019-03-17] MEDS: FERROUS SULFATE 325 MG TABLET PO SCH ×2 (11:26→17:18)
[2019-03-17] MEDS: SENNOSIDES/DOCUSATE 8.6-50 MG 1 EACH TABLET PO SCH (11:26)
--- NOTE | 2019-03-17 15:35 | PDOC DISCHARGE SUMMARY ---
Final Diagnosis Discharge Date: 03/17/19 - Final Diagnosis (1) Obstetrical laceration, second degree Is this a current diagnosis for this admission?: Yes (2) Delivery normal Is this a current diagnosis for this admission?: Yes Discharge Data - Discharge Medication Prescriptions: Ibuprofen [Motrin 800 mg Tablet] 800 mg PO Q8HP PRN #60 tablet PRN Reason: Prenat 115/Iron Fum/Folic/Dss [ 19 Tablet] 1 tab PO DAILY #90 tablet Home Medications: Buprenorphine HCl/Naloxone HCl [Suboxone 2 mg-0.5 mg Sublingual Tablet] 0.5 mg SUBD DAILY 02/21/19 Docusate Sodium [Colace 100 mg Capsule] 100 mg PO BID capsule 03/17/19 Ibuprofen [Motrin 800 mg Tablet] 800 mg PO Q8HP PRN #60 tablet 03/17/19 Prenat 115/Iron Fum/Folic/Dss [ 19 Tablet] 1 tab PO DAILY #90 tablet 03/17/19 Procedures: NST Intrapartum Procedure(s): Spontaneous Vaginal Delivery - Diagnosis Test Laboratory: Temp Pulse Resp BP Pulse Ox 98.3 F 78 16 117/70 100 03/17/19 13:33 03/17/19 13:33 03/17/19 13:33 03/17/19 13:33 03/17/19 13:33 03/15/19 03/15/19 03/16/19 06:15 07:37 06:45 RBC 4.11 3.91 Hgb 10.9 L 10.3 L Hct 33.0 L 31.5 L Urine Opiates Screen NEGATIVE - Discharge information/Instructions Discharge Activity: Balance Activity w/Rest, Pelvic Rest Discharge Diet: Regular Disposition: HOME, SELF-CARE Follow up with: [facility] in: 4, Weeks
--- NOTE | 2019-03-23 10:43 | Delivery Summary ---
Del Sum A-C Datetime Report Generated by CPN: 03/23/2019 10:43 DELIVERY PERSONNEL DELIVERY PERSONNEL: [id number] Delivery Doctor:: Carmen Mccloud CNM Labor and Delivery Nurse:: LOUISA Calle Labor and Delivery Nurse:: Julissa Elliott RN Nursery Nurse:: Chelly Rivas RN Nursery Nurse:: James Podopediatrician/LABORER PIPELINES: Adirana Ye, ST MATERNAL INFORMATION Delivery Anesthesia: Local; Epidural Medications During Delivery: local for repair Medications After Delivery: Pitocin Bolus-Please Comment; Pitocin Drip 20 Units/1000ml NSS Meds After Delivery Comment: Pitocin 20 units in 1 L NS bolusing per order Estimated Blood Loss (ml): 250 Maternal Complications: None LABOR SUMMARY EDC: 03/12/2019 00:00 No. Babies in Womb: 1 Attempted: No Labor Anesthesia: Epidural LABOR INFORMATION Reason for Induction: Not Applicable Onset of Labor: 03/15/2019 02:00 Complete Dilatation: 03/15/2019 09:15 Oxytocin: N/A Group B Beta Strep: Positive Antibiotics # of Doses: 1 Antibiotics Time of Last Dose: 0559 Name of Antibiotic Given: PCN Steroids Given: None Reason Steroids Not Administered: Not Applicable MEMBRANES Membranes Rupture Method: Spontaneous Rupture of Membranes: 03/15/2019 07:54 Length of Rupture (hr): 5.15 Amniotic Fluid Color: Light Meconium Amniotic Fluid Amount: Moderate Amniotic Fluid Odor: Normal STAGES OF LABOR Stage 1 hr: 7 Stage 1 min: 15 Stage 2 hr: 3 Stage 2 min: 48 Stage 3 hr: 0 Stage 3 min: 2 Total Time in Labor hr: 11 Total Time in Labor min: 5 VAGINAL DELIVERY Episiotomy: None Laceration #1: Perineal Laceration Extension #1: Second Degree Laceration #2: None Laceration Extension #2: N/A Laceration #3: None Laceration Extension #3: N/A Laceration Repair: Yes Laceration Repair Note: repair of perineal laceration with 3-0 chromic in usual fashion Sponge Count Correct: Yes; Vaginal Sweep Performed Sharps Count Correct: Yes BABY A INFORMATION Delivery Date/Time: 03/15/2019 13:03 Method of Delivery: Vaginal Method of Delivery: Vaginal Born in Route : No : N/A Forceps: N/A Vacuum Extraction: Successful Shoulder Dystocia : No ASSISTED DELIVERY BABY A Indication for Assisted Delivery: Inadequate expulisive effort Catheter Prior to Procedure: Yes Station Vacuum/Forcep Apply: plus 3 Vacuum Number of Pulls: 3 Vacuum Number of PopOffs: 0 Reduce Pressure btwn Ctx: Yes Vacuum Computer Operations Specialist: Kiwi Total Time Vacuum Applied: 2 minutes Vacuum/Forceps Comment: [place] with pressure in green. Position was direct OP PRESENTATION/POSITION BABY A Presentation: Cephalic Presentation: Cephalic Cephalic Presentation: Vertex Vertex Position: OP Breech Presentation: N/A PLACENTA INFORMATION BABY A Placenta Delivery Time : 03/15/2019 13:05 Placenta Method of Delivery: Spontaneous Placenta Status: Delivered SCORES BABY A Heart Rate 1 min: >100 bpm Resp Effort 1 min: Good Cry Reflex Irritability 1 min: Cough or Sneeze or Pulls Away Muscle Tone 1 min: Active Motion Color 1 min: Blue/Pale Resuscitation Effort 1 min: Tactile Stimulation SCORE 1 MIN: 8 Heart Rate 5 min: >100 bpm Resp Effort 5 min: Good Cry Reflex Irritability 5 min: Cough or Sneeze or Pulls Away Muscle Tone 5 min: Active Motion Color 5 min: Body [place], Extremities Blue SCORE 5 MIN: 9 INFORMATION BABY A Gestational Age at Delivery: 40.3 Gestational Status: Full Term- 39- 40.6 Weeks Outcome : Liveborn Condition : Stable Sex: Female Infant Sex: Female IDENTIFICATION BABY A Verification Date/Time: 03/15/2019 14:11 ID Band Number: [id number] Mother's Name Verified: Yes Infant RN Verifying Infant: SAutry Additional Verifying Personnel: A Graham WEIGHT/LENGTH BABY A Birthweight (gm): 2776 Weight (lb): 6 Weight (oz): 2 Length (in): 19.50 Length (cm): 49.53 CORD INFORMATION BABY A No. Cord Vessels: 3 Nuchal Cord : N/A Cord Blood Taken: Yes-For Storage (Mom's Blood type +) Infant Suction: Mouth; Nose ASSESSMENT BABY A Infant Complications: Multiple Variable Decels Physical Findings at Delivery: Caput Succedaneum Infant Respirations: Appears Normal Skin to Skin: patient discussing with nursery needs of baby regarding suboxone and Kratom powder Skin to Skin: Yes Inverter And Clipper/ALS Called : No Infant Care By: Moshe Rivas RN Transferred To: Remains with Mother BABY B INFORMATION : N/A
== END 2019-03-17 19:13 | disposition home or self-care (01) | DRG 807 ==
LOC: LC 05:31 → LR 05:48 → 2S 15:10
PROVIDERS: ADMIT Student in an Organized Health Care Education/Training Program; ATTEND Student in an Organized Health Care Education/Training Program
PROC: 10D07Z6 Extraction of Products of Conception, Vacuum, Via Natural or Artificial Opening (ICD-10-PCS; principal; 2019-03-15)
PROC: 0KQM0ZZ Repair Perineum Muscle, Open Approach (ICD-10-PCS; 2019-03-15)
DX: O99.824 Streptococcus B carrier state complicating childbirth (principal); Z37.0 Single live birth; O70.1 Second degree perineal laceration during delivery; O76 Abnormality in fetal heart rate and rhythm complicating labor and delivery; F19.10 Other psychoactive substance abuse, uncomplicated; O99.323 Drug use complicating pregnancy, third trimester; O99.334 Smoking (tobacco) complicating childbirth; F17.210 Nicotine dependence, cigarettes, uncomplicated; Z3A.40 40 weeks gestation of pregnancy
CPT/HCPCS: 36415; 80307; 81005; 85025; 85027; 86592; 86850; 86900; 86901; 90715; J2370; J2540; J2590; J3010; J3490; J7060